=== PATIENT | male | born 1965 | race Asian ===

== ENCOUNTER 2019-02-11 11:29 | Inpatient (IN) | payer SELFPAY ==
[~2019-02-11] VITALS: Ht 342.9 cm; Wt 73.9 kg
[2019-02-11 12:14] LABS: BASOPHILS % 0.6 % (0.0-2.0); EOSINOPHILS % 0.3 % (0.0-5.0); HEMATOCRIT. 22.2 % (42.0-52.0); HEMOGLOBIN. 7.4 g/dL (14.0-18.0); LYMPHOCYTES % 14.2 % (20.0-50.0); MEAN CORPUSCULAR HEMOGLOBIN 29.1 pg (28.0-32.0); MEAN CORPUSCULAR VOLUME 87.9 fL (80.0-94.0); MEAN PLATELET VOLUME 7.2 fl (7.4-10.4); MONOCYTES % 5.1 % (2.0-8.0); NEUTROPHILS % 79.8 % (40.0-76.0); PLATELET 275 x1000/uL (130-400); RED BLOOD CELL COUNT 2.53 mill/uL (4.7-6.1)
[2019-02-11 12:25] LABS: CHLORIDE 111 mEq/L (98-107)
[2019-02-11] MEDS ORDERED: MAGNESIUM/ALUMINUM HYDROXIDE/SIMETHICONE 30ML UDC PO STA (15:29)
[2019-02-11] MEDS ORDERED: VISCOUS LIDOCAINE 2% 15 ML UDC PO STA (15:29)
[2019-02-11] MEDS ORDERED: FAMOTIDINE 20MG/2ML VIAL IV STA (15:29)
[2019-02-11] MEDS ORDERED: ACETAMINOPHEN 325MG TABLET PO STA (15:29)
[2019-02-11] MEDS ORDERED: ONDANSETRON HCL 4MG/2ML INJ IV PRN (15:30)
[2019-02-11] MEDS ORDERED: HYDROCODONE/ACETAMINOPHEN 5/325MG TABLET PO PRN (15:30)
[2019-02-11] MEDS ORDERED: DOCUSATE SODIUM 100MG CAPSULE PO PRN (15:30)
[2019-02-11] MEDS ORDERED: CLONIDINE 0.1MG TABLET PO PRN (15:30)
[2019-02-11 15:44] LABS: TOTAL IRON BINDING CAPACITY 293 ug/dL (250-450)
[2019-02-11 18:55] VITALS: BP 117/68
[2019-02-11] MEDS ORDERED: FURO-151 PO (19:33)
[2019-02-11] MEDS ORDERED: ESCI10TA MT (19:33)
[2019-02-11] MEDS ORDERED: PRAS10TA6 MT (19:33)
[2019-02-11] MEDS ORDERED: ATOR10TA PO (19:33)
[2019-02-11] MEDS ORDERED: ASPI-1393 MT (19:33)
[2019-02-11 20:00] VITALS: BP 103/65
[2019-02-11 21:00] VITALS: BP 103/65
[2019-02-11] MEDS: ACETAMINOPHEN 325MG TABLET PO PRN (21:43)
[2019-02-11] MEDS: PANTOPRAZOLE SODIUM 40 MG/VIAL IV SCH (21:43)
[2019-02-11] MEDS: SODIUM CHLORIDE 0.9% 1,000 ML IV SCH (21:44)
[2019-02-12] VITALS (11 sets, daily range): BP systolic 91–108; BP diastolic 52–71
[2019-02-12] MEDS: ACETAMINOPHEN 325MG TABLET PO PRN ×2 (05:51→18:09)
[2019-02-12 07:28] LABS: BASOPHILS % 0.8 % (0.0-2.0); EOSINOPHILS % 0.9 % (0.0-5.0); LYMPHOCYTES % 15.4 % (20.0-50.0); MEAN CORPUSCULAR HEMOGLOBIN 29.1 pg (28.0-32.0); MEAN CORPUSCULAR VOLUME 86.9 fL (80.0-94.0); MEAN PLATELET VOLUME 7.3 fl (7.4-10.4); MONOCYTES % 6.2 % (2.0-8.0); NEUTROPHILS % 76.7 % (40.0-76.0); PLATELET 270 x1000/uL (130-400); RED BLOOD CELL COUNT 2.39 mill/uL (4.7-6.1); RED CELL DISTRIBUTION WIDTH 14.4 % (11.6-14.6)
[2019-02-12 07:40] LABS: LDL CHOLESTEROL 56 mg/dL (5-100)
[2019-02-12 07:42] LABS: HDL CHOLESTEROL 30 mg/dL (40-59); T4 FREE 0.73 ng/dL (0.76-1.46)
[2019-02-12 07:49] LABS: HEMATOCRIT. 20.8 % (42.0-52.0)
[2019-02-12] MEDS: PANTOPRAZOLE SODIUM 40 MG/VIAL IV SCH ×2 (10:48→20:33)
[2019-02-12] MEDS: SODIUM CHLORIDE 0.9% 1,000 ML IV SCH ×2 (10:54→18:10)
[2019-02-12 17:43] LABS: HEMATOCRIT 23.9 % (42.0-52.0); HEMOGLOBIN 8.1 g/dL (14.0-18.0); MEAN CORPUSCULAR HEMOGLOBIN 29.6 pg (28.0-32.0); MEAN CORPUSCULAR VOLUME 87.2 fL (80.0-94.0); PLATELET 272 x1000/uL (130-400); RED BLOOD CELL COUNT 2.74 mill/uL (4.7-6.1); RED CELL DISTRIBUTION WIDTH 13.7 % (11.6-14.6)
[2019-02-12 17:54] LABS: TOTAL IRON BINDING CAPACITY 333 ug/dL (250-450)
[2019-02-13] VITALS: BP 96/58
[2019-02-13] MEDS: SODIUM CHLORIDE 0.9% 1,000 ML IV SCH (03:29)
[2019-02-13 04:00] VITALS: BP 102/65
[2019-02-13] MEDS: ACETAMINOPHEN 325MG TABLET PO PRN (06:49)
[2019-02-13 08:00] VITALS: BP 99/64
[2019-02-13] MEDS: PANTOPRAZOLE SODIUM 40 MG/VIAL IV SCH (09:11)
[2019-02-13 10:17] VITALS: BP 99/64
== END 2019-02-13 11:35 | disposition home or self-care (01) | DRG 253 ==
LOC: ER 11:29 → 8WST 15:11 → ENRESERV 17:30
PROVIDERS: ADMIT Hospitalist; ATTEND Hospitalist
PROC: 30233N1 Transfusion of Nonautologous Red Blood Cells into Peripheral Vein, Percutaneous Approach (ICD-10-PCS; principal; 2019-02-12)
DX: K92.2 Gastrointestinal hemorrhage, unspecified (principal); I95.9 Hypotension, unspecified; R55 Syncope and collapse; D62 Acute posthemorrhagic anemia; E78.5 Hyperlipidemia, unspecified; F32.9 Major depressive disorder, single episode, unspecified; I25.10 Atherosclerotic heart disease of native coronary artery without angina pectoris; K21.9 Gastro-esophageal reflux disease without esophagitis; Z87.11 Personal history of peptic ulcer disease; Z98.61 Coronary angioplasty status
CPT/HCPCS: 36415; 71045; 76700; 80061; 82728; 83540; 83550; 83880; 84439; 84443; 84484; 85027; 86850; 86900; 86920; 93005; 93306; 93970; 99285; C9113; J3490; P9016